=== PATIENT | female | born 1965 ===

== ENCOUNTER 2019-02-20 11:28 | Observation (INO) | payer BC ==
[2019-02-20] MEDS ORDERED: Morphine 4 MG/ML VIAL (1 ml) 4 MG/ML VIAL IV ONE ×2 (12:22→13:31)
[2019-02-20] MEDS ORDERED: Ondansetron INJ* 2 MG/ML VIAL IV ONE (12:22)
[2019-02-20 12:59] LABS: ABS Lymphocytes 1.4 10^3/ul (1.0-4.8); ABS Neutrophils 11.3 10^3/ul (1.5-7.7); Eosinophil % 0.1 %; Hematocrit 40 % (35-47); Hemoglobin 14.2 g/dL (12.0-16.0); Lymphocyte % 10.1 %; Mean Corpuscular HGB Conc 35 g/dL (31-36); Mean Corpuscular Hemoglobin 30 pg (27-31); Mean Corpuscular Volume 87 fL (80-97); Mean Platelet Volume 7.7 fL (7.4-10.4); Platelet Count 256 10^3/uL (150-450); Red Blood Count 4.66 10^6 /uL (3.70-4.87); Red Cell Distribution Width 13 % (10-15); White Blood Count 13.7 10^3/uL (3.5-10.8)
--- NOTE | 2019-02-20 13:14 | ED ---
Abdominal Pain/Female - HPI Summary HPI Summary: This patient is a 54-year-old female presenting to the ED with left-sided flank pain radiating to the left lower quadrant associated with nausea. She states this pain is severe, rating this a 10/10 with acute onset a few hours ago. Patient states she had a colonoscopy on 02/14 and a 3mm polyp was removed from transverse colon. No complications since that time. Today she notes acute onset left-sided flank pain, nausea, vomiting. Patient appears very uncomfortable on arrival. Denies any hematemesis, melena, hematochezia he denies any urinary symptoms or gross hematuria. Denies history of kidney stones. History of appendectomy. Otherwise healthy and takes no medications. - History of Current Complaint Chief Complaint: EDAbdPain Stated Complaint: ABD/FLANK PAIN PER PT Time Seen by Provider: 02/20/19 12:18 Hx Obtained From: Patient ?: No Onset/Duration: Sudden Onset Timing: Hours Severity Initially: Severe Severity Currently: Severe Pain Intensity: 8 Pain Scale Used: 0-10 Numeric Location: Flank Radiates: Yes Radiates to: LLQ Character: Sharp Aggravating Factor(s): Nothing Alleviating Factor(s): Nothing Associated Signs and Symptoms: Positive: Nausea, Vomiting. Negative: Diaphoresis, Fever, Cough, Blood in Stool, Urinary Symptoms, Decreased Appetite , Diarrhea - Risk Factors Ectopic Risk Factor: Negative Ovarian Torsion Risk Factor: Negative Allergies/Adverse Reactions: Allergies Allergy/AdvReac Type Severity Reaction Status Date / Time No Known Allergies Allergy Verified 02/20/19 16:12 Home Medications: Home Medications Excedrin Migraine Caplet 02/20/19 [History] PMH/Surg Hx/FS Hx/Imm Hx Previously Healthy: Yes Endocrine/Hematology History: Denies: Hx Diabetes Cardiovascular History: Denies: Hx Hypertension - Surgical History Surgery Procedure, Year, and Place: two C-sections, appendectomy (1984), cyst removed from left breast (1984) - Immunization History Hx Pertussis Vaccination: No Immunizations Up to Date: Yes Infectious Disease History: No Infectious Disease History: Denies: Traveled Outside the [place] in Last 30 Days - Family History Known Family History: Negative: Seizure Disorder - Social History Occupation: Employed Full-time Lives: With Family Alcohol Use: None Hx Substance Use: No Substance Use Type: Reports: None Hx Tobacco Use: No Smoking Status (MU): Never Smoked Tobacco Review of Systems Negative: Fever, Chills, Fatigue, Skin Diaphoresis Negative: Shortness Of Breath, Cough Positive: Abdominal Pain, Vomiting, Nausea. Negative: Diarrhea Positive: see HPI, flank pain. Negative: burning, dysuria, discharge, hematuria Negative: Arthralgia, Myalgia Neurological: Negative All Other Systems Reviewed And Are Negative: Yes Physical Exam Triage Information Reviewed: Yes Vital Signs On Initial Exam: Initial Vitals Temp Pulse Resp BP Pulse Ox 98.7 F 87 18 154/89 98 02/20/19 11:31 02/20/19 11:31 02/20/19 11:31 02/20/19 11:31 02/20/19 11:31 Vital Signs Reviewed: Yes Appearance: Positive: Well-Nourished, Ill-Appearing, Pain Distress Skin: Positive: Warm, Skin Color Reflects Adequate Perfusion Eyes: Positive: EOMI, LUIS, Conjunctiva Clear Neck: Positive: Supple, No Lymphadenopathy Respiratory/Lung Sounds: Positive: Clear to Auscultation, Breath Sounds Present Cardiovascular: Positive: RRR, Pulses are Symmetrical in both Upper and Lower Extremities Abdomen Description: Positive: CVA Tenderness (L), Other: Bowel Sounds: Positive: Present Musculoskeletal: Positive: Strength/ROM Intact Neurological: Positive: Sensory/Motor Intact, Alert, Oriented to Person Place, Time, Speech Normal Diagnostics - Vital Signs Vital Signs Temp Pulse Resp BP Pulse Ox 02/20/19 12:34 18 02/20/19 11:31 98.7 F 87 18 154/89 98 - Laboratory Lab Results: Lab Results 02/20/19 Range/Units 12:24 WBC 13.7 H (3.5-10.8) 10^3/uL RBC 4.66 (3.70-4.87) 10^6 /uL Hgb 14.2 (12.0-16.0) g/dL Hct 40 (35-47) % MCV 87 (80-97) fL MCH 30 (27-31) pg MCHC 35 (31-36) g/dL RDW 13 (10-15) % Plt Count 256 (150-450) 10^3/uL MPV 7.7 (7.4-10.4) fL Neut % (Auto) 82.5 % Lymph % (Auto) 10.1 % [place] % (Auto) 7.0 % Eos % (Auto) 0.1 % Baso % (Auto) 0.3 % Absolute Neuts (auto) 11.3 H (1.5-7.7) 10^3/ul Absolute Lymphs (auto) 1.4 (1.0-4.8) 10^3/ul Absolute Monos (auto) 1.0 H (0-0.8) 10^3/ul Absolute Eos (auto) 0.0 (0-0.6) 10^3/ul Absolute Basos (auto) 0.0 (0-0.2) 10^3/ul Absolute Nucleated RBC 0.0 10^3/ul Nucleated RBC % 0.0 Result Diagrams: 02/21/19 05:56 02/21/19 05:56 Lab Statement: Any lab studies that have been ordered have been reviewed, and results considered in the medical decision making process. Abdominal Pain Fem Course/Dx - Course Course Of Treatment: During the course of treatment, the patient is evaluated for acute onset left-sided flank pain radiating to the LLQ with associated nausea and vomiting. Patient appears very comfortable on arrival. On arrival into the ED, patient is given 4 mg IV Zofran, 4 mg IV morphine and [address] abdomen/pelvis obtained: There is a 0.6 mm calculus of the proximal left ureter. UA shows infection. Discussed this with Dr. Prado who will take to OR. Pt is given another 1L fluids, and 2g Ceftriaxone. - Diagnoses Differential Diagnosis: Positive: Urinary Tract Infection Provider Diagnoses: Ureteral calculus, UTI (urinary tract infection) - Provider Notifications Discussed Care Of Patient With: Hunter Prado Instructed by Provider To: Will See In ED - plan to go to OR Discharge ED - Sign-Out/Discharge Documenting (check all that apply): Patient Departure All imaging exams completed and their final reports reviewed: Yes - Discharge Plan Condition: Fair Disposition: ADMITTED TO [facility] - Billing Disposition and Condition Condition: FAIR Disposition: Admitted to [facility] - Attestation Statements Provider Attestation: I have seen the patient with the ALEX and agree with the plan and documentation below except as noted: 53-year-old female with left lower quadrant pain found to have infected obstructing stone. Given ceftriaxone, taken to the OR with urology. Adali Sanchez MD
[2019-02-20 13:18] LABS: Albumin 4.5 g/dL (3.2-5.2); Albumin/Globulin Ratio 1.5 (1-3); BUN/Creatinine Ratio 14.5 (8-20); Calcium 9.1 mg/dL (8.6-10.3); EGFR African American 51.4 (>60); EGFR Non-African American 42.5 (>60); Globulin 3.1 g/dL (2-4); Magnesium 1.6 mg/dL (1.9-2.7); Potassium 3.6 mmol/L (3.5-5.0); Total Bilirubin 1.1 mg/dL (0.2-1.0); Total Protein 7.6 g/dL (6.4-8.9)
[2019-02-20] MEDS ORDERED: NS 0.9% 1000 ML** 1,000 ML IV ONE (13:21)
[2019-02-20 13:40] LABS: Urine Appearance Cloudy; Urine Bilirubin Negative (Negative); Urine Blood 3+ (Negative); Urine Color Yellow; Urine Glucose Negative (Negative); Urine Ketones 2+ (Negative); Urine Nitrite Positive (Negative); Urine Protein 2+(100 mg/dL) (Negative); Urine Specific Gravity 1.021 (1.010-1.030); Urine Urobilinogen Negative (Negative)
[2019-02-20 13:43] LABS: Urine Bacteria 3+ (Absent); Urine Red Blood Cell 3+(>10/hpf) (Absent); Urine Squamous Epithelial Cell Present (Absent); Urine White Blood Cell 3+(>20/hpf) (Absent)
[2019-02-20] MEDS ORDERED: cefTRIAXone(*) 2 GM in NS 0.9% 100 ML* 100 ML IVPB ONE (13:47)
[2019-02-20] MEDS ORDERED: HYDROmorphone INJ1* 1 MG/ML SYRINGE IV ONE (14:09)
[2019-02-20] MEDS ORDERED: Buffered Lidocaine 1% SYRIN* 1 ML/SYRINGE INTRADERM ONE (15:32)
[2019-02-20] MEDS ORDERED: Famotidine IV* 10 MG/ML 2 ML (20 mg) IV ONE (15:32)
[2019-02-20] MEDS ORDERED: Lactated Ringers 1000 ML Bag* 1,000 ML IV SCH (16:00)
[2019-02-20] MEDS ORDERED: Famotidine IV* 10 MG/ML 2 ML (20 mg) ONE (16:19)
[2019-02-20] MEDS ORDERED: Midazolam* 1 MG/ML 2 ML VIAL (2 MG) ONE (16:48)
[2019-02-20] MEDS ORDERED: fentaNYL* 50 MCG/ML 2 ML VIAL (100 MCG VIAL) ONE (16:48)
[2019-02-20] MEDS ORDERED: Iohexol 180 (CONTRAST) 10 ML SDV IV ONE (17:04)
[2019-02-20] MEDS ORDERED: Gentamicin ADULT (*) 40 MG/ML VIAL (2 ML VIAL = 80 MG) ONE (17:05)
[2019-02-20] MEDS ORDERED: Lidocaine 2% PF * 5 ML VIAL ONE (17:28)
[2019-02-20] MEDS ORDERED: Propofol* 10 MG/ML 20 ML BTL ONE (17:28)
[2019-02-20] MEDS ORDERED: Gentamicin ADULT (*) 160 MG in NS 0.9% 100 ML* 100 ML IVPB ONE (17:30)
[2019-02-20] MEDS ORDERED: KETAMINE HCL* 50 MG/ML 10 ML VIAL ONE (17:33)
[2019-02-20] MEDS ORDERED: Ondansetron INJ* 2 MG/ML VIAL ONE (17:42)
[2019-02-20] MEDS ORDERED: DiMENhydriNATE IV* 50 MG/ML VIAL IV PUSH PRN (17:50)
[2019-02-20] MEDS ORDERED: Ondansetron INJ* 2 MG/ML VIAL IV PRN ×2 (17:50→18:46)
[2019-02-20] MEDS ORDERED: diPHENhydraMINE IV* 50 MG/ML 1 ml VIAL (BENADRYL) IV PRN (17:50)
[2019-02-20] MEDS ORDERED: Acetaminophen TAB* 325 MG PO PRN ×2 (17:50→18:46)
[2019-02-20] MEDS ORDERED: Naloxone* 0.4 MG/ML 1 ML VIAL IV PRN (17:50)
[2019-02-20] MEDS ORDERED: oxyCODONE TAB* 5 MG TAB PO PRN (17:50)
[2019-02-20] MEDS ORDERED: Ibuprofen TAB* 600 MG PO PRN (18:46)
[2019-02-20] MEDS ORDERED: NS 0.9% 1000 ML** 1,000 ML IV SCH (19:00)
[2019-02-20] MEDS ORDERED: Magnesium Sulfate 2 GM IV* 2 GM/50 ML BAG IVPB ONE (19:24)
[2019-02-20] MEDS: Lactated Ringers 1000 ML Bag* 1,000 ML IV SCH (20:03)
--- NOTE | 2019-02-20 20:31 | HP ---
CC: Dr. Nehemiah Jara; Dr. Hunter Prado * HISTORY AND PHYSICAL: DATE OF ADMISSION: 02/20/19 PRIMARY CARE PHYSICIAN: Dr. Nehemiah Jara. CHIEF COMPLAINT: Left flank pain. SUBJECTIVE/HISTORY OF PRESENT ILLNESS: This is a 54-year-old female who came into the emergency room with acute onset of left-sided flank pain, started today , severe, 9/10, associated with nausea, vomiting, no chills, unable to find a position that relieves the pain. In the emergency room, she had an imaging study, CT abdomen, and it showed left nephrolithiasis with mild hydronephrosis. Consultation with Urology, Dr. Prado, was obtained, who took her to the OR today , had cystoscopy and left ureteral stent placement. She did receive Rocephin and gentamicin, and we were called postoperatively in PACU to see and evaluate the patient for admission overnight post procedure and possible discharge in the morning. She was seen and evaluated in the PACU. She was awake, alert, in stable condition, on IV fluids, pain significantly improved. PAST MEDICAL HISTORY: No history of diabetes or hypertension. She is on Excedrin p.r.n. for pain. PAST SURGICAL HISTORY: 1. Two C-sections. 2. Appendectomy. 3. Left breast cyst lumpectomy. MEDICATIONS: Excedrin as needed. ALLERGIES: No known drug allergies. FAMILY HISTORY: Negative for any significant past medical history. No history of seizure disorder or cancer. SOCIAL HISTORY: Denies alcohol or tobacco use. She is with one son. REVIEW OF SYSTEMS: As per HPI. PHYSICAL EXAMINATION GENERAL: He is awake, alert, pleasant, in no apparent distress. VITAL SIGNS: Temperature 98.2, pulse 69, satting 98%, blood pressure 138/75. HEENT: Head and Neck: Normocephalic, atraumatic. Supple. LUNGS: Clear to auscultation bilaterally. No crackles, rales, or wheeze. CARDIOVASCULAR: S1, S2. Regular rate and rhythm. ABDOMEN: Positive bowel sounds. Soft, nontender, nondistended. EXTREMITIES: No pedal edema. DIAGNOSTIC STUDIES: She had the following done: CBC: White count 13,000. Hemoglobin 14, hematocrit 40, platelets 256. Chemistries: Sodium 139, potassium 3.6, BUN 19, creatinine 1.3. Glucose 108. Lactic acid 1.8. Magnesium 1.6. AST 15, ALT 13, CRP 71. Lipase 31. Urinalysis: 2+ protein, 2+ ketones, 3+ blood, positive for nitrites with wbc's of 3+, bacteria 3+. CT scan of abdomen and pelvis shows left nephrolithiasis, mild hydronephrosis, hepatomegaly with some fatty infiltration. ASSESSMENT: This is a 54-year-old female who comes in with left flank pain with pyuria and leukocytosis. 1. UTI secondary to obstructive nephrolithiasis: - She underwent left cystoscopy with left ureteral stent placement, - Will Admit to Medical Service postoperatively for kidney stone and hydronephrosis, possible pyelonephritis. - She is status post Rocephin and gentamicin in the OR. We will continue with Rocephin 1 g IV daily. Follow up urine culture. - Tylenol and ibuprofen p.r.n. for pain. - Possible D/c in am keflex pending final urine culture - GI prophylaxis: Protonix. [id number]/CPS #: [id number] MTDD
[2019-02-20] MEDS: cefTRIAXone(*) 1 GM in NS 0.9% 50 ML* 50 ML IVPB SCH (21:00)
[2019-02-21] MEDS: Lactated Ringers 1000 ML Bag* 1,000 ML IV SCH ×2 (02:49→09:50)
--- NOTE | 2019-02-21 03:05 | OP ---
CC: Dr. Jara * DATE OF OPERATION: 02/20/19 - ROOM #338 DATE OF : 67 SURGEON: Hunter Prado MD. ANESTHESIOLOGIST: Dr. Jackson. ANESTHESIA: Intravenous sedation. PRE-OP DIAGNOSES: 1. Left hydronephrosis. 2. Calculus, left proximal ureter. 3. Urinary tract infection. POST-OP DIAGNOSES: 1. Left hydronephrosis. 2. Calculus, left proximal ureter. 3. Urinary tract infection. OPERATIVE PROCEDURES: 1. Cystoscopy. 2. Left retrograde pyelogram. 3. Left ureteral stent insertion. INDICATIONS: Azra Silva is a 54-year-old lady who was evaluated in the emergency department for an obstructing calculus in the left proximal ureter and an associated urinary tract infection. She is now being brought in for urgent left stent insertion and will later require definitive treatment of the calculus either with the shock wave lithotripsy or laser lithotripsy after treatment of the infection. COMPLICATIONS: None. STENT USED: A 7-Faroese stent, left ureter. POSTOPERATIVE CONDITION: Stable. OPERATIVE FINDINGS: Mild left hydronephrosis. DESCRIPTION OF PROCEDURE: After administration of intravenous sedation, the patient was placed in dorsal lithotomy position. Sequential compression devices were in place and functioning. Initial cystoscopy revealed a normally- located right and left ureteral orifices. There were some changes of chronic inflammation noted in the floor of the bladder, but no evidence of any suspicious bladder lesions noted. Limited left retrograde pyelogram revealed mild dilatation of the collecting system with some evidence of extravasation. The calculus seen on the CT could not be easily identified on fluoroscopy. Using a 7-Faroese silicone stent under fluoroscopic monitoring, the stent was positioned with good proximal and distal positioning obtained. The bladder was emptied. The patient tolerated the procedure satisfactorily and was transferred back to the recovery area in stable condition. My plan is to obtain a postoperative x-ray to try and determine the final position of the calculus and then to bring her back as an outpatient for treatment of the calculus once the infection is treated. [id number]/CPS #: [id number] MTDD
[2019-02-21] MEDS ORDERED: Omeprazole CAP (NF) 20 MG CAP.DR PO SCH (06:00)
[2019-02-21 06:09] LABS: ABS Lymphocytes 0.9 10^3/ul (1.0-4.8); ABS Monocytes 0.4 10^3/ul (0-0.8); ABS Neutrophils 7.4 10^3/ul (1.5-7.7); Hematocrit 38 % (35-47); Hemoglobin 12.9 g/dL (12.0-16.0); Lymphocyte % 10.6 %; Mean Corpuscular HGB Conc 34 g/dL (31-36); Mean Corpuscular Hemoglobin 30 pg (27-31); Mean Corpuscular Volume 87 fL (80-97); Mean Platelet Volume 7.4 fL (7.4-10.4); Platelet Count 193 10^3/uL (150-450); Red Blood Count 4.31 10^6 /uL (3.70-4.87); Red Cell Distribution Width 14 % (10-15); White Blood Count 8.8 10^3/uL (3.5-10.8)
[2019-02-21 06:25] LABS: BUN/Creatinine Ratio 16.1 (8-20); EGFR African American 76.3 (>60); EGFR Non-African American 63.1 (>60); Magnesium 2.1 mg/dL (1.9-2.7); Phosphorus 2.8 mg/dL (2.5-5.0); Potassium 4.1 mmol/L (3.5-5.0)
[2019-02-21] MEDS ORDERED: Pantoprazole TAB * 40 MG TAB PO SCH (09:00)
[2019-02-21] MEDS ORDERED: Ketorolac INJ* 30 MG/ML 1 ML VIAL IV PUSH ONE (09:06)
[2019-02-21 11:12] VITALS: BP 132/67
[2019-02-21] MEDS: cefTRIAXone(*) 1 GM in NS 0.9% 50 ML* 50 ML IVPB SCH (13:50)
--- NOTE | 2019-02-21 21:18 | DS ---
CC: Dr. Hunter Prado; Dr. Nehemiah Jara * DISCHARGE SUMMARY: DATE OF ADMISSION: 02/20/19 DATE OF DISCHARGE: 02/21/19. UROLOGIST: Dr. Hunter Prado. PRIMARY CARE DOCTOR: Dr. Nehemiah Jara. FINAL DISCHARGE DIAGNOSES: 1. Urinary tract infection secondary to left nephrolithiasis. 2. Left hydronephrosis with left nephrolithiasis. HOSPITAL COURSE: The patient presented to the emergency room on 02/20/19 for left flank pain associated with nausea and vomiting. She was diagnosed with left nephrolithiasis with mild hydronephrosis and positive pyuria in her urine. Urology was consulted. Dr. Prado saw, evaluated the patient, and took her to the OR and she underwent cystoscopy and left ureteral stent placement. Postoperatively, the patient was admitted to the Medicine under observational status. She received IV fluids, antiemetic, and IV antibiotics. This morning, the patient had 1 episode of vomiting triggered by her migraine headache, which was treated with Toradol. Her diet was advanced and she tolerated her breakfast afterwards and her lunch. She was seen and evaluated by Urology and she was cleared from Urology point of view for discharge. Therefore, at this time, the patient is medically stable to be discharged. Her urine culture is still pending. Nonetheless, I am going to cover her empirically with cefazolin (Keflex) pending final culture. PHYSICAL EXAM: Vital Signs: Temperature 98, pulse 58, respiratory rate 16, sating 97%, blood pressure 132/67. General: She is awake, alert, oriented, in no distress. Head and neck: Normocephalic, atraumatic, supple. Lungs: Clear to auscultation bilaterally. Cardiovascular: S1, S2, regular rate and rhythm. Abdomen: Positive bowel sounds, soft, nontender, nondistended. Extremities: No pedal edema. DIAGNOSTIC STUDIES/LAB DATA: She had CBC today. It reveals improved white count from 13,000 down to 8000. Chemistry field unremarkable. Her urinalysis is positive as outlined in her H and P for bacteria and leuk esterase. Her urine culture is pending, result not available. Imaging studies: Abdominal CT on 02/20/19 in the emergency room revealed left nephrolithiasis with left mild hydronephrosis. Abdominal x-ray 02/21/19 shows left ureteral stent in place. Procedure: She had cystoscopy with retrograde intraureteral stent placement. DISCHARGE MEDICATIONS: Continue home medications as follows: 1. Excedrin p.r.n. 2. Tylenol p.r.n. 3. She was discharged on Keflex 500 t.i.d. for 5 days. DISCHARGE CONDITION: Stable. DISCHARGE DISPOSITION: Home. [id number]/[facility] #: [id number] YESSICA
== END 2019-02-21 15:05 | disposition home or self-care (01) ==
LOC: ED 11:28 → INTOOBSV 17:16 → AA 17:16 → SSU 19:53
PROVIDERS: ADMIT Urology; ATTEND Internal Medicine
DX: N13.6 Pyonephrosis (principal); N20.1 Calculus of ureter; N39.0 Urinary tract infection, site not specified; Z87.442 Personal history of urinary calculi; Z79.899 Other long term (current) drug therapy
CPT/HCPCS: 36415; 74018; 74176; 74420; 80048; 80053; 81003; 81015; 83605; 83690; 83735; 84100; 84550; 85025; 86140; 87077; 87086; 87186; 96361; 96365; 96366; 96375; 96376; 99283; A9270-GY; G0378; J0696; J1170; J1580; J1885; J2250; J2270; J2405; J2704; J3010; J3475

== ENCOUNTER 2019-03-16 06:58 | Day surgery (SDC) | payer BC ==
[~2019-03-16 06:58] MED LIST: Buffered Lidocaine 1% SYRIN* 1 ML/SYRINGE INTRADERM ONE; Famotidine IV* 10 MG/ML 2 ML (20 mg) IV ONE; NS 0.9% 1000 ML** 1,000 ML IV SCH
[2019-03-16] MEDS ORDERED: cefTRIAXone(*) 2 GM ADDV.VIAL IVPB ONE (07:35)
[2019-03-16] MEDS ORDERED: Buffered Lidocaine 1% SYRIN* 1 ML/SYRINGE INTRADERM ONE (07:35)
[2019-03-16] MEDS ORDERED: Famotidine IV* 10 MG/ML 2 ML (20 mg) ONE (07:35)
[2019-03-16] MEDS ORDERED: Propofol* 10 MG/ML 20 ML BTL ONE (08:08)
[2019-03-16] MEDS ORDERED: Ondansetron INJ* 2 MG/ML VIAL ONE (08:08)
[2019-03-16] MEDS ORDERED: KETAMINE HCL* 50 MG/ML 10 ML VIAL ONE (08:08)
[2019-03-16] MEDS ORDERED: Dexamethasone IV* 4 MG/ML 1 ML (4 MG) ONE (08:08)
[2019-03-16] MEDS ORDERED: Midazolam* 1 MG/ML 5 ML VIAL (5 MG) ONE (08:08)
[2019-03-16] MEDS ORDERED: Lidocaine 2% PF * 5 ML VIAL ONE (08:08)
[2019-03-16] MEDS ORDERED: fentaNYL* 50 MCG/ML 2 ML VIAL (100 MCG VIAL) ONE (08:08)
[2019-03-16] MEDS ORDERED: Iohexol 180 (CONTRAST) 10 ML SDV IV ONE (08:15)
[2019-03-16] MEDS ORDERED: fentaNYL* 50 MCG/ML 2 ML VIAL (100 MCG VIAL) IV PRN (09:38)
[2019-03-16] MEDS ORDERED: Naloxone* 0.4 MG/ML 1 ML VIAL IV PRN (09:38)
[2019-03-16] MEDS ORDERED: Ondansetron INJ* 2 MG/ML VIAL IV PRN (09:38)
[2019-03-16] MEDS ORDERED: Ketorolac INJ* 30 MG/ML 1 ML VIAL ONE (09:40)
[2019-03-16 13:07] VITALS: BP 124/76
--- NOTE | 2019-03-16 17:24 | OP ---
CC: Dr. Nehemiah Jara; Dr. Hunter Praod OPERATIVE REPORT: DATE OF OPERATION: 03/16/19 DATE OF : 67 SURGEON: Hunter Prado MD ANESTHESIOLOGIST: Dr. Hawk. ANESTHESIA: General. PRE-OP DIAGNOSES: 1. Calculus, left proximal ureter. 2. Left hydronephrosis. POST-OP DIAGNOSES: 1. Calculus, left proximal ureter. 2. Left hydronephrosis. OPERATIVE PROCEDURE: Cystoscopy, left stent removal, left retrograde pyelogram, left ureteroscopy an d laser lithotripsy of calculus left ureter and removal of calculus fragments, and left stent inserti on. COMPLICATIONS: None. STENT USED: 6-Zimbabwean stent, left ureter. OPERATIVE FINDINGS: 7 to 8 mm calculus, left proximal ureter close to ureteropelvic junction with mi ld left hydronephrosis. POSTOPERATIVE CONDITION: Stable. INDICATIONS: Azra Silva is a 54-year-old lady who had undergone urgent left stent insertion for an obs tructing calculus associated with a urinary tract infection. DESCRIPTION OF PROCEDURE: After induction of general anesthesia, the patient was placed in dorsal li thotomy position. Sequential compression devices were in place and functioning. Initial cystoscopy revealed left stent in proper position, exiting from the left orifice and this was removed intact wit hout difficulty. Retrograde pyelogram revealed mild fullness of the left collecting system. A 6- [place]eyo [facility] semi-rigid ureteroscope was introduced and advanced under direct vision into the left ureter. In the proximal ureter just below the ureteropelvic junction, a 7 to 8 mm calculus was noted. This was engaged using a 3-prong grasper and was brought down into the distal ureter and in that location, it was then broken up using a 550 micron Holmium laser fiber. This was fragmented into 3 to 4 pieces, which were all retrieved and sent for analysis. At the end of the procedure, there were no remaining fragments in the ureter. A 6-Zimbabwean stent was introduced and positioned under fluoroscopy with good proximal and distal positioning obtained. The patient tolerated the procedure satisfactorily and was transferred back to the recovery area in stable condition. [id number]/[facility] #: [id number]
[2019-03-21 00:33] LABS: Interpretation 100% Uric acid
== END 2019-03-16 12:40 | disposition home or self-care (01) ==
LOC: OR 06:58
PROVIDERS: ATTEND Urology
DX: N13.2 Hydronephrosis with renal and ureteral calculous obstruction (principal); E04.1 Nontoxic single thyroid nodule
CPT/HCPCS: 74018; 74420; 81025; 82365; 88300; C1876; J0696; J1100; J1885; J2250; J2405; J2704; J3010